=== PATIENT | female | born 1955 | race Caucasian/White ===

== ENCOUNTER → 2019-08-02 08:42 | Outpatient (BNVA) | payer MEDICARE, OTHER, SELFPAY | PROVIDERS: Family Provider Nurse Practitioner Family; PCP Nurse Practitioner Family; Visit Provider Nurse Practitioner Family | DX: I10 Essential (primary) hypertension (principal); H91.90 Unspecified hearing loss, unspecified ear | CPT/HCPCS: 80048; 80061 ==

== ENCOUNTER 2019-08-05 22:58 | Emergency (ER) | payer MEDICARE, OTHER, SELFPAY ==
[2019-08-05 23:15] VITALS: BP 184/109; RESP 18; TEMP 36.7; O2SAT 95; BMI 25.6
--- NOTE | 2019-08-05 23:24 | XRR_ITS ---
PROCEDURE INFORMATION: Exam: XR Chest, 1 View Exam date and time: 08/05/2019 11:59 PM Age: 64 years old Clinical indication: Pain; Cough; Chest pressure; Additional info: Cough/congestion TECHNIQUE: Imaging protocol: XR of the chest Views: 1 view. COMPARISON: No relevant prior studies available. FINDINGS: Lungs: Unremarkable. No consolidation. Pleural space: Unremarkable. No pleural effusion. No pneumothorax. Heart/Mediastinum: Unremarkable. No cardiomegaly. Bones/joints: No acute abnormality. XR/XR chest 1V portable [id number] IMPRESSION: No acute findings.
[2019-08-05 23:40] LABS: Basophils % 0.2 %; Eosinophils # 0.1 10^3/uL (0.0-0.8); Eosinophils % 0.8 %; Hematocrit 40.6 % (37.0-47.0); Hemoglobin 13.2 g/dL (11.5-15.3); Lymphocytes # 2.2 10^3/uL (0.8-4.8); Lymphocytes % 32.6 %; Mean Corpuscular HGB Conc 32.5 g/dL (30.0-36.0); Mean Corpuscular Hemoglobin 27.9 pg (28.0-34.0); Mean Corpuscular Volume 85.8 fL (81-99); Mean Platelet Volume 11.9 fL (7.4-10.4); Monocytes # 0.4 10^3/uL (0.2-0.9); Monocytes % 5.5 %; Neutrophils % 60.7 %; Nucleated Red Blood Cells % 0 %; Platelet Count 218 10^3/cmm (130-400); Red Blood Count 4.73 10^6/uL (4.1-5.3); Red Cell Distribution Width 12.9 % (12.1-15.1); White Blood Count 6.6 10^3/uL (4.0-10.0)
[2019-08-05 23:52] VITALS: RESP 12; O2SAT 97
--- NOTE | 2019-08-05 23:53 | ED_ITS ---
Entered by Daija Arriaga, acting as scribe for Demetrio Donis DO Aug 05, 2019 22:58 HPI - Chest Pain General: Chief Complaint: Chest Pain Stated Complaint: high bp Time Seen by Provider: 08/05/19 23:53 Source: patient Mode of arrival: ambulatory Limitations: no limitations History of Present Illness: HPI narrative: 64 yo f came to the er for high blood pressure. Onset was today. Pt states that her bp was high and that she was having some chest pain with some tightness. Pt states that she was nauseated earlier today. Pt that she used to have to take medication for bp and it got better so she was taken off till here recently it started to go back up. MD complaint: chest pain Pertinent past history: other (hypertension) Onset (ago): day(s) (today) Timing of current episode: episodic Prior episodes: Yes Onset: during rest Pain location: epigastric Pain radiation: none Severity: mild Quality: tightness Relieving factors: nothing Exacerbating factors: nothing Associated symptoms: Reports nausea (gone now); Deny abdominal pain, dyspnea, fever(s), palpitations or vomiting Review of Systems 2 Const: Denies: fever Eyes: Denies: change in vision or blurry vision ENMT: Denies: painful swallowing, swelling of lips/tongue, bleeding gums, dental pain, Change in hearing, nose bleeds, post nasal drip or facial/sinus pain Card: Denies: palpitations Resp: Denies: shortness of breath GI: Reports: nausea (gone now); Denies: abdominal pain or vomiting : Denies: painful urination, urinary frequency, urinary urgency or blood in urine Musc: Denies: neck pain, back pain, redness or joint warmth Skin/Breast: Denies: rash, itching or redness Neuro: Denies: headache, dizziness, vertigo, confusion or seizure-like activity Psych: Denies: anxiety, visual hallucinations or auditory hallucinations PFSH ED PFSH: Statuses (acute, chronic, etc) shown below reflect problem list status as previously entered and may not be historically accurate Medical History (Updated 08/06/19 @ 03:06 by Demetrio Donis DO) HTN (hypertension), benign (Acute) Social History Smoking and tobacco status: never smoked Physical Exam Const: GENERAL APPEARANCE: well developed ORIENTATION/CONSCIOUSNESS: Yes oriented to person, Yes oriented to place and Yes oriented to time HENMT: COMMON NORMALS: normocephalic, external ears normal and external nose normal HEAD & SCALP: normocephalic; no scalp tenderness FACE & SINUS: normal facial exam NOSE: external nose normal and no nasal discharge EXTERNAL EAR: Yes external ears normal MOUTH: tongue normal Eye: COMMON NORMALS: PERRL, EOMs intact bilaterally and conjunctivae normal EYELID: eyelids normal CONJUNCTIVA: Yes conjunctivae normal PUPIL: Yes PERRL Neck/C-Spine: COMMON NORMALS: full ROM GENERAL: No tracheal deviation CERVICAL SPINE: Yes normal cervical lordosis Chest: COMMONS NORMALS: inspection of chest normal CHEST: No tenderness Resp: COMMON NORMALS: clear to auscultation bilaterally EFFORT & INSPECTION: No tachypneic, No respiratory distress, No retractions, No uses accessory muscles and No tracheal deviation AUSCULTATION: clear to auscultation bilaterally, no rhonchi, no wheezes and lung sounds not diminished Cardio: COMMON NORMALS: regular rate and regular rhythm RATE: regular rate RHYTHM: regular rhythm HEART SOUNDS: no murmurs PERIPHERAL PULSES: radial pulses present GI: INSPECTION: No abdominal distension AUSCULTATION: No hyperactive bowel sounds and No hypoactive bowel sounds PALPATION: No guarding and No rigid PERCUSSION: no dullness to percussion and no tympanic to percussion : COMMON NORMALS: Yes no CVA tenderness BLADDER/KIDNEY EXAM: Yes no CVA tenderness Back/Pelvis: COMMON NORMALS: no CVA tenderness Neuro: SENSORIUM/ORIENTATION: Yes oriented to person, Yes oriented to place and Yes oriented to time Psych: COMMON NORMALS: mental status grossly normal Skin: COMMON NORMALS: no rashes or lesions noted GENERAL SKIN EXAM: no rashes or lesions noted Course ED course: 64-year-old female with recent diagnosis of hypertension, no prior coronary history. She presents with increasing blood pressure this evening with tightness in her chest. The tightness in her chest is nearly resolved. Her hypertension is improving from her numbers at home. She responded nicely to amlodipine here. Her troponins were essentially unchanged at 2 hours. She did not show any ST changes on EKG. Her chest x-ray is negative. She will be allowed home. She will increase her lisinopril from 5 mg daily to 10. Vital Signs: Vital signs: Vital Signs Temperature 98.0 F 08/05/19 23:15 Pulse Rate 80 08/06/19 03:21 Respiratory Rate 19 H 08/06/19 03:21 Blood Pressure 134/78 08/06/19 03:21 Pulse Oximetry 97 08/06/19 03:21 MDM - Chest Pain Lab Data: Labs: Lab Results 08/05/19 08/05/19 08/05/19 Range/Units 23:35 23:35 23:35 WBC 6.6 (4.0-10.0) 10^3/ uL RBC 4.73 (4.1-5.3) 10^6/u L Hgb 13.2 (11.5-15.3) g/dL Hct 40.6 (37.0-47.0) % MCV 85.8 (81-99) fL MCH 27.9 L (28.0-34.0) pg MCHC 32.5 (30.0-36.0) g/dL RDW 12.9 (12.1-15.1) % Plt Count 218 (130-400) 10^3/c mm MPV 11.9 H (7.4-10.4) fL Neut % (Auto) 60.7 % Lymph % (Auto) 32.6 % Coos % (Auto) 5.5 % Eos % (Auto) 0.8 % Baso % (Auto) 0.2 % Neut # (Auto) 4.0 (1.8-7.7) 10^3/u L Lymph # (Auto) 2.2 (0.8-4.8) 10^3/u L Coos # (Auto) 0.4 (0.2-0.9) 10^3/u L Eos # (Auto) 0.1 (0.0-0.8) 10^3/u L Baso # (Auto) 0.0 (0.0-0.1) 10^3/u L Nucleated RBC % (a uto) 0 % Nucleated RBCs # 0.0 /100WBC Sodium 140 (136-145) mmol/L Potassium 4.1 (3.5-5.1) mmol/L Chloride 100 (98-107) mmol/L Carbon Dioxide 25 (22-29) mmol/L Anion Gap 19.1 H (5-19) BUN 15 (8-23) mg/dL Creatinine 0.8 (0.5-0.9) mg/dL GFR Calculation 71.8 L (90-130) mL/min Glucose 114 H (74-106) mg/dL Calcium 10.2 (8.5-10.5) mg/dL Total Bilirubin 0.4 (0.15-1.2) mg/dL AST 16 (0-32) U/L ALT 13 (0-33) U/L Alkaline Phosphata se 69 (35-105) IU/L Troponin T Baselin e 8 (0-10) ng/mL Troponin T 120 Min [place] (0-10) ng/mL Delta Troponin T (0-10) ABS# Total Protein 8.0 (6.6-8.7) g/dL Albumin 4.9 (3.5-5.2) g/dL Globulin 3.1 (1.3-4.6) g/dL 08/06/19 Range/Units 01:12 WBC (4.0-10.0) 10^3/ uL RBC (4.1-5.3) 10^6/u L Hgb (11.5-15.3) g/dL Hct (37.0-47.0) % MCV (81-99) fL MCH (28.0-34.0) pg MCHC (30.0-36.0) g/dL RDW (12.1-15.1) % Plt Count (130-400) 10^3/c mm MPV (7.4-10.4) fL Neut % (Auto) % Lymph % (Auto) % Coos % (Auto) % Eos % (Auto) % Baso % (Auto) % Neut # (Auto) (1.8-7.7) 10^3/u L Lymph # (Auto) (0.8-4.8) 10^3/u L Coos # (Auto) (0.2-0.9) 10^3/u L Eos # (Auto) (0.0-0.8) 10^3/u L Baso # (Auto) (0.0-0.1) 10^3/u L Nucleated RBC % (a uto) % Nucleated RBCs # /100WBC Sodium (136-145) mmol/L Potassium (3.5-5.1) mmol/L Chloride (98-107) mmol/L Carbon Dioxide (22-29) mmol/L Anion Gap (5-19) BUN (8-23) mg/dL Creatinine (0.5-0.9) mg/dL GFR Calculation (90-130) mL/min Glucose (74-106) mg/dL Calcium (8.5-10.5) mg/dL Total Bilirubin (0.15-1.2) mg/dL AST (0-32) U/L ALT (0-33) U/L Alkaline Phosphata se (35-105) IU/L Troponin T Baselin e (0-10) ng/mL Troponin T 120 Min [place] 7.47 (0-10) ng/mL Delta Troponin T -0.53 L (0-10) ABS# Total Protein (6.6-8.7) g/dL Albumin (3.5-5.2) g/dL Globulin (1.3-4.6) g/dL Imaging Data^: CXR: Radiologist's impression: [place] [address] XRay Report Signed Patient: Marnie Moss #: [id number] : 3Acct#:[id number] Age/Sex: 64 / FADM Date: 08/05/19 Loc: [facility] Clinic/Bed: Attending Dr: Ordering Provider/Ordering MD: Katelyn Morrison Date of Service: 08/05/19 Procedure(s): XR chest 1V portable [id number] Accession Number(s): [id number] Report Number: [id number] PROCEDURE INFORMATION: Exam: XR Chest, 1 View Exam date and time: 08/05/2019 11:59 PM Age: 64 years old Clinical indication: Pain; Cough; Chest pressure; Additional info: Cough/congestion TECHNIQUE: Imaging protocol: XR of the chest Views: 1 view. COMPARISON: No relevant prior studies available. FINDINGS: Lungs: Unremarkable. No consolidation. Pleural space: Unremarkable. No pleural effusion. No pneumothorax. Heart/Mediastinum: Unremarkable. No cardiomegaly. Bones/joints: No acute abnormality. XR/XR chest 1V portable [id number] IMPRESSION: No acute findings. Dictated By:Monik Watson Signed By:Gilson Watson Date/Time:08/06/19 0005 DD/ 0004 Discharge Plan Discharge Patient Disposition: Home, Self-Care Clinical Impression: Chest pain Qualifiers: Chest pain type: unspecified Qualified Code(s): R07.9 - Chest pain, unspecified Hypertension Qualifiers: Hypertension type: essential hypertension Qualified Code(s): I10 - Essential (primary) hypertension Condition: Stable Prescriptions: No Action lisinopril 5 mg tablet 5 mg PO QDAY Qty: 30 RF: 0 Discharge Orders: Discharge Order (Routine); Ordered 08/06/19 Ordered By: Demetrio Donis Referrals: Lidia Carlton FNP [Primary Care Provider] - Satya Feng FNP [Family Provider] - Discharge Diet: Advance as tolerated Discharge Activity: Resume usual activity Patient Instructions: Chest Pain (ED), Hypertension (ED) Activity Restrictions/Additional Instructions: Check your blood pressure twice daily. Report numbers to your physician. Return to the emergency department for worsening chest pain, shortness of breath, other concerning symptoms. Increase your lisinopril to 10 mg (2 5mg tablets) daily. Discharge Date/Time: 08/06/19 03:22 Coding Level of Care Code ED Supply Assistant for Vedag Lukas The documentation recorded by the Bart giron Stephanie Lyn, accurately reflects the service I personally performed and the decisions made by Gagandeep pandey Jeremy John, DO Aug 05, 2019 22:58
[2019-08-05 23:55] VITALS: RESP 21; O2SAT 97
[2019-08-06] VITALS (28 sets, daily range): BP systolic 134–152; BP diastolic 78–87; PULSE 72–80; RESP 11–20; O2SAT 96–98
[2019-08-06 00:01] LABS: Troponin(5th) Baseline 8 ng/mL (0-10)
[2019-08-06 00:18] LABS: Alanine Aminotransferase 13 U/L (0-33); Albumin Level 4.9 g/dL (3.5-5.2); Alkaline Phosphatase 69 IU/L (35-105); Anion Gap 19.1 (5-19); Aspartate Amino Transferase 16 U/L (0-32); Blood Urea Nitrogen 15 mg/dL (8-23); Calcium 10.2 mg/dL (8.5-10.5); Carbon Dioxide 25 mmol/L (22-29); Chloride 100 mmol/L (98-107); Globulin 3.1 g/dL (1.3-4.6); Glomerular Filtration Rate 71.8 mL/min (90-130); Glucose 114 mg/dL (74-106); Potassium 4.1 mmol/L (3.5-5.1); Sodium 140 mmol/L (136-145); Total Bilirubin 0.4 mg/dL (0.15-1.2)
[2019-08-06] MEDS: amlodipine 10 mg Tablet PO (01:09)
[2019-08-06 01:37] LABS: Troponin 5 2HR 7.47 ng/mL (0-10)
[2019-08-06 01:53] LABS: Troponin 5 2HR Delta -0.53 ABS# (0-10)
--- NOTE | 2019-08-06 05:24 | ECG_ITS ---
Measurements Intervals [place] Rate: 66 P: 54 LA: 198 QRS: -13 QRSD: 89 T: 28 QT: 382 QTc: 402 SINUS RHYTHM No previous ECG available for comparison Electronically Signed On 08-06-2019 18:02:51 PROCESS INSPECTOR by Zara Barth M.D. [email or web address]
== END 2019-08-06 03:22 | disposition home or self-care (01) ==
PROVIDERS: Physician Assistant; Emergency Provider Emergency Medicine; Family Provider Nurse Practitioner Family; PCP Nurse Practitioner Family
DX: R07.9 Chest pain, unspecified (principal); I10 Essential (primary) hypertension
CPT/HCPCS: 36415; 71045; 80053; 84484; 85025; 93005; 99283

== ENCOUNTER → 2020-05-16 10:29 | Outpatient (BNVA) | payer MEDICARE, OTHER, SELFPAY | PROVIDERS: Family Provider Nurse Practitioner Family; PCP Nurse Practitioner Family; Visit Provider Nurse Practitioner Family | DX: I10 Essential (primary) hypertension (principal) | CPT/HCPCS: 80048 ==

== ENCOUNTER → 2020-11-27 09:15 | Outpatient (BNVA) | payer MEDICARE, OTHER, SELFPAY | PROVIDERS: Family Provider Nurse Practitioner Family; PCP Nurse Practitioner Family; Visit Provider Nurse Practitioner Family | DX: I10 Essential (primary) hypertension (principal) | CPT/HCPCS: 80048 ==

== ENCOUNTER → 2021-06-27 08:46 | Outpatient (BNVA) | payer MEDICARE, OTHER, SELFPAY | PROVIDERS: Family Provider Nurse Practitioner Family; PCP Nurse Practitioner Family; Visit Provider Nurse Practitioner Family | DX: I10 Essential (primary) hypertension (principal) | CPT/HCPCS: 80053; 80061 ==

== ENCOUNTER 2025-05-15 19:21 | Emergency (ER) | payer MEDICARE, OTHER, SELFPAY ==
[2025-05-15 19:27] VITALS: BP 173/95; PULSE 91; RESP 16; TEMP 36.9; O2SAT 96; BMI 27.3
--- NOTE | 2025-05-15 19:29 | ECG_ITS ---
[facility] Test Date: 2025-05-15 Pat Name: Kathrine Moss Department: Room: Gender: Female Plumber'S Assistant: : 1955 Requested By: Poornima William Order Number: [id number] Joann MD: Zuri Guallpa M.D. Measurements Intervals [place] Rate: 93 P: 24 AR: 181 QRS: -21 QRSD: 89 T: 50 QT: 359 QTc: 448 Interpretive Statements SINUS RHYTHM POSSIBLE LEFT ATRIAL ENLARGEMENT [-0.1mV P-WAVE IN V1/V2] POSSIBLE LEFT VENTRICULAR HYPERTROPHY [VOLTAGE CRITERIA PLUS LAE OR QRS WIDENING] POSSIBLE ANTERIOR MYOCARDIAL INFARCTION , PROBABLY OLD [30 ms Q WAVE IN V3/V4, OR R < 0.2 mV IN V4] Compared to ECG 08/06/2019 01:24:31 Myocardial infarct finding now present Electronically Signed On 05-16-2025 22:04:45 TRAINING AND DEVELOPMENT HEAD by Zuri Guallpa M.D. [email or web address]
--- OUTSIDE RECORDS SUMMARY | 2025-05-15 19:32 | XMS_ITS | Encounter Summary ---
Author Organization [facility] Address [address] [place] [address] Care Team Providers Care Financial Services Manager Name Role Phone Unavailable Primary Care Provider Unavailabl e Encounter Details Date Type Department Care Team (Latest Contact Info) Description 09/19/1998 Outpatient Historical [facility] Medicine [place] [address] [facility] [address] [place] [id number] Hannah Palma NO ADDRESS ON FILE Pure hypercholesterolem (Primary Dx); Other and unspecified hyperlipidemia; Acute sinusitis, unspecified Social History Tobacco Use Types Packs/Day Years Used Date Smoking Tobacco: Never Assessed Comments Unknown Sex and Gender Information Value Date Recorded Sex Assigned at Not on file 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
--- OUTSIDE RECORDS SUMMARY | 2025-05-15 19:32 | XMS_ITS | Clinical Summary ---
Author Organization [facility] Address [address] 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
--- OUTSIDE RECORDS SUMMARY | 2025-05-15 19:32 | XMS_ITS | Encounter Summary ---
Author Organization [facility] Address [address] [place] [address] Care Team Providers Care Dampener Operator Name Role Phone Unavailable Primary Care Provider Unavailabl e Encounter Details Date Type Department Care Team (Latest Contact Info) Description 09/06/1998 Outpatient Historical [facility] Medicine [place] [address] [facility] [address] [place] [id number] Hannah Palma NO ADDRESS ON FILE Chronic ischemic heart disease, unspecified (Primary Dx); Other benign neoplasm of connective and other soft tissue of unspecified site; Screening for malignant neoplasm of the rectum; Screening for malignant neoplasm of the cervix Social History Tobacco Use Types Packs/Day Years Used Date Smoking Tobacco: Never Assessed Comments Unknown Sex and Gender Information Value Date Recorded Sex Assigned at Not on file 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
--- NOTE | 2025-05-15 20:20 | XRR_ITS ---
PROCEDURE INFORMATION: Exam: XR Chest Exam date and time: 05/15/2025 8:33 PM Age: 70 years old Clinical indication: Pain; Chest pressure; Additional info: Chest pain TECHNIQUE: Imaging protocol: Radiologic exam of the chest. Views: 1 view. COMPARISON: CR XR chest 1V portable [id number] 08/05/2019 11:49 PM FINDINGS: Lungs: Slightly diminished lung volumes with bronchovascular crowding. Linear opacities are noted at each lung base. Pleural spaces: No pleural effusion. No pneumothorax. Heart/Mediastinum: Cardiac silhouette is normal in size for technique. Bones/joints: Age appropriate. XR/XR chest 1V portable [id number] IMPRESSION: Minor linear opacities at each lung base could reflect developing atelectasis or pneumonitis. Lung volumes are low. No airspace consolidation.
--- NOTE | 2025-05-15 20:47 | W.ED.CHESTPA ---
HPI - Chest Pain General: Chief Complaint: Chest Pain Stated Complaint: Chest Pains Time Seen by Provider: 05/15/25 20:42 History of Present Illness: 70yo F w/pmhx of HTN, noncompliant with her medications, presents with a chief complaint of sudden onset, sharp and severe pain in her lower chest/upper abdomen with radiation to the back. Patient states she was at rest working on a puzzle when the pain came on. She states that pain has now gone away and she is completely asymptomatic but it has taken an hour or so to return back to baseline. She has not been ill with a fever, upper respiratory symptoms, cough, hemoptysis, syncope and she does not feel short of breath. Patient states she felt a little nauseated but no vomiting, diarrhea. She states she's noted a bit of dysuria this morning but no blood in urine. She does not have a h/o kidney stones. Patient has never been a smoker. Of note, she denies any neurologic sx such as confusion, vision change, focal numbness, weakness, paresthesia, difficulty w/speech, swallowing, facial asymmetry, difficulty w/coordination/ambulation. Related Data Previous Rx's ?Medication ?Instructions ?Recorded lisinopril 10 mg tablet See Rx Instructions .Route 06/27/21 .COMPLEX #90 tabs lisinopril 20 1 tab PO DAILY 30 days #30 tabs 05/16/25 mg-hydrochlorothiazide 12.5 mg tablet Allergies Allergy/AdvReac Type Severity Reaction Status Date / Time codeine Allergy nausea Verified 05/15/25 19:42 [facility]: Medical History (Updated 05/16/25 @ 00:06 by Yvrose Buckley MD) Chest pain HTN (hypertension), benign Surgical History History of colon surgery Hx of appendectomy Hx of hysterectomy Hx of removal of ovary Family History Father Chronic kidney disease (CKD) Mother Chronic kidney disease (CKD) Hypertension Social History Smoking and tobacco/nicotine status: never used tobacco/nicotine Physical Exam Narrative: EXAM NARRATIVE: Vital signs were reviewed. Patient is alert and oriented. EOMI, PERRL, no facial asymmetry, speech is clear. Patient is breathing comfortably, no increased WOB or accessory muscle use. SpO2 is above 95% on RA. Patient has clear lungs b/l, no rhonchi, wheezing or crackles. No hypotension or tachycardia. +Hypertension. Difference in SBP is not greater than 20 points. Abdomen is soft, nondistended and nontender. Patient is moving all extremities with full strength, no deformity or gross injury. No lower extremity edema or asymmetry. +2 radial and DP pulses. Course Vital Signs: Vital signs: Vital Signs Temperature 98.4 F 05/15/25 19:27 Pulse Rate 83 05/16/25 00:17 Respiratory Rate 16 05/16/25 00:17 Blood Pressure 136/91 05/16/25 00:17 Pulse Oximetry 95 05/16/25 00:17 Oxygen Delivery Me thod Room Air 05/15/25 23:54 MDM - Chest Pain Medical Decision Making 70-year-old female presents with a chief complaint of sudden, sharp and severe low chest/upper abd pain w/radiation to her back. Pain started at rest while patient was working on a puzzle. It lasted under 1 hour and on my exam, patient denies any type of pain. Differential diagnosis includes, but is not limited to, ACS, aortic dissection, AAA, pneumothorax, PE, pneumonia, upper respiratory infection, GERD, intra-abdominal pathology, other. On exam, patient is hemodynamically stable though she is very hypertensive. Systolic blood pressure in bilateral upper extremities does not differ by more than 20 points. It is 223 systolic in the right upper extremity and 217 systolic in the left upper extremity when I measure her blood pressure on my exam. She was evaluated CBC, BMP, troponin, BNP, EKG, chest x-ray, CT scan dissection protocol. Given her sudden onset of severe pain, history of uncontrolled hypertension, dissection remains on my Ddx. Shew as treated w/IV labetalol and PO lisinopril to lower her blood pressure. Patient has normal white blood cell count and is not anemic. She has a troponin that is negative x [address] imaging shows: IMPRESSION: 1. No acute abnormality of the normal caliber thoracoabdominal aorta. In particular, there is no evidence of acute dissection. 2. Small sliding hiatal hernia, otherwise no abnormality identified to explain patient's chest pain. 3. Right intrarenal calculus. No evidence of renal obstruction. 4. Diverticulosis without evidence of acute diverticulitis. Her symptoms may have been caused by small sliding hiatal hernia. Patient has not had recurrence of chest pain during her ED visit. Her blood pressure has improved. We discussed the importance of taking her blood pressure medication as prescribed. I will increase her dose of blood pressure medication given how hypertensive she presented. At this time, she is well-appearing and appropriate for outpatient management. Patient was counseled on supportive care at home, given return precautions and discharged in stable condition with recommendation for outpatient follow-up with primary care nurse or doctor. Lab Data 05/15/25 20:51 05/15/25 20:51 Radiology Impressions Chest X-Ray 05/15/25 20:20 IMPRESSION: Minor linear opacities at each lung base could reflect developing atelectasis or pneumonitis. Lung volumes are low. No airspace consolidation. Chest/Abdomen/Pelvis CTA 05/15/25 21:28 IMPRESSION: 1. No acute abnormality of the normal caliber thoracoabdominal aorta. In particular, there is no evidence of acute dissection. 2. Small sliding hiatal hernia, otherwise no abnormality identified to explain patient's chest pain. 3. Right intrarenal calculus. No evidence of renal obstruction. 4. Diverticulosis without evidence of acute diverticulitis. Laboratory Results WBC 8.63 10^3/uL (3.29-11.43) 05/15/25 20:51 RBC 4.62 10^6/uL (3.85-5.65) 05/15/25 20:51 Hgb 13.20 g/dL (11.27-16.99) 05/15/25 20:51 Hct 40.8 % (36-47) 05/15/25 20:51 MCV 88.3 fl (85-98) 05/15/25 20:51 MCH 28.6 pg (27-33) 05/15/25 20:51 MCHC 32.4 g/dL (30-55) 05/15/25 20:51 RDW 13.8 % (12.1-15.1) 05/15/25 20:51 Plt Count 193 10^3/cmm (157-399) 05/15/25 20:51 MPV 11.9 fL (7.4-10.4) H 05/15/25 20:51 Neut % (Auto) 66.0 % 05/15/25 20:51 Lymph % (Auto) 25.4 % 05/15/25 20:51 Cooper % (Auto) 7.0 % 05/15/25 20:51 Eos % (Auto) 1.2 % 05/15/25 20:51 Baso % (Auto) 0.2 % 05/15/25 20:51 Neut # (Auto) 5.70 10^3/uL (1.8-7.7) 05/15/25 20:51 Lymph # (Auto) 2.2 10^3/uL (0.8-4.8) 05/15/25 20:51 Cooper # (Auto) 0.6 10^3/uL (0.2-0.9) 05/15/25 20:51 Eos # (Auto) 0.1 10^3/uL (0.0-0.8) 05/15/25 20:51 Baso # (Auto) 0.0 10^3/uL (0.0-0.1) 05/15/25 20:51 Nucleated RBC % (auto) 0 % 05/15/25 20:51 Nucleated RBCs # 0.0 /100WBC 05/15/25 20:51 Sodium 142 mmol/L (136-145) 05/15/25 20:51 Potassium 3.9 mmol/L (3.5-5.1) 05/15/25 20:51 Chloride 106 mmol/L (98-107) 05/15/25 20:51 Carbon Dioxide 26 mmol/L (22-29) 05/15/25 20:51 Anion Gap 13.9 (5-19) 05/15/25 20:51 BUN 21 mg/dL (8-23) 05/15/25 20:51 Creatinine 0.7 mg/dL (0.5-0.9) 05/15/25 20:51 GFR Calculation Not Reportable 05/15/25 20:51 Glucose 117 mg/dL (65-115) H 05/15/25 20:51 Calculated Osmolality 298 mOsm/kg (285-295) H 05/15/25 20:51 Calcium 9.7 mg/dL (8.5-10.5) 05/15/25 20:51 Troponin T Baseline 8 ng/L (0-10) 05/15/25 20:51 Troponin T 120 Minute 7.79 ng/L (0-10) 05/15/25 22:51 Delta Troponin T -0.21 ABS# (0-10) L 05/15/25 22:51 NT-Pro-B Natriuret Pep 57 pg/mL (0-125) 05/15/25 20:51 All radiology interpretation(s) finalized by discharge EKG Data EKG 1: Interpretation: Sinus rhythm with a heart rate of 93, normal axis, normal intervals, narrow complex, no ST segment elevation. Discharge Plan Discharge Patient Disposition: Home Clinical Impression: Atypical chest pain, Sliding hiatal hernia High blood pressure Qualifiers: Hypertension type: unspecified Qualified Code(s): I10 - Essential (primary) hypertension Condition: Stable Prescriptions: New lisinopril-hydrochlorothiazide 20-12.5 mg tablet 1 tab PO DAILY 30 Days Qty: 30 0RF No Action lisinopril 10 mg tablet See Rx Instructions .ROUTE .COMPLEX Qty: 90 1RF Dose Instruction: Take 1 tablet by mouth once daily Rx Instructions: Take 1 tablet by mouth once daily Discharge Orders: Discharge ED (Routine); Ordered 05/16/25 Ordered By: Yvrose Buckley Referrals: Lidia Carlton FNP [Primary Care Provider, Family Practice] Patient Instructions: Chest Pain (ED), Chronic Hypertension (ED), Opioid Safety, Pain Management, Patient Portal & Judith Instructions Activity Restrictions/Additional Instructions: Please continue to monitor your condition closely at home. If your condition worsens or additional concerns arise, please return to the emergency department for reassessment. Please follow-up with your primary care physician closely within the next 48 hours. Please work with your doctor closely to ensure that your blood pressure is under control. Please see a barrel driller on an outpatient basis as soon as possible for follow up. Print Language: Austrian Coding Level of Care Code ED Metal Inspector for Chg Fwd Heart Score HEART Score Components History: Moderately Suspicious EKG: Non-specific Changes Age: 65 or more yrs Risk Factors: 1 or 2 Risk Factors (High blood pressure, age) Troponin: Baseline Trop <16 ng/L HEART Score RESULT HEART Score: 5
[2025-05-15 21:07] LABS: Hematocrit 40.8 % (36-47); Hemoglobin 13.20 g/dL (11.27-16.99); Mean Corpuscular HGB Conc 32.4 g/dL (30-55); Mean Corpuscular Hemoglobin 28.6 pg (27-33); Mean Corpuscular Volume 88.3 fl (85-98); Nucleated Red Blood Cells % 0 %; Platelet Count 193 10^3/cmm (157-399); Red Blood Count 4.62 10^6/uL (3.85-5.65); White Blood Count 8.63 10^3/uL (3.29-11.43)
[2025-05-15 21:26] LABS: Troponin(5th) Baseline 8 ng/L (0-10)
--- NOTE | 2025-05-15 21:28 | CTR_ITS ---
PROCEDURE INFORMATION: Exam: CTA Chest With Contrast CTA Abdomen and Pelvis Without And With Contrast Exam date and time: 05/15/2025 9:55 PM Age: 70 years old Clinical indication: Abdominal pain; Other: Sharp; Additional info: Sharp/tearing chest pain, R/O dissection TECHNIQUE: Imaging protocol: Computed tomographic angiography of the chest with contrast. Exam focused on the arteries. Computed tomographic angiography of the abdomen and pelvis without and with contrast. Exam focused on the arteries. 3D rendering (Not supervised by radiologist): MIP and/or 3D reconstructed images were created by the technologist. Radiation optimization: All CT scans at this facility use at least one of these dose optimization techniques: automated exposure control; mA and/or kV adjustment per patient size (includes targeted exams where dose is matched to clinical indication); or iterative reconstruction. Contrast material: [id number]; Contrast volume: 100 ml; Contrast route: INTRAVENOUS (IV); COMPARISON: CR (CHEST, ) 05/15/2025 8:33 PM RADIATION DOSE METRICS: Total DLP (mGy-cm): 1304.43 FINDINGS: VASCULATURE: Pulmonary arteries: Normal caliber pulmonary artery tree without visible filling defect. Aorta: Normal caliber thoracic aorta without evidence of acute dissection, penetrating ulcer, or intramural hematoma. Normal caliber abdominal aorta without evidence of dissection. Celiac and mesenteric arteries: No occlusion or significant stenosis. Renal arteries: No occlusion or significant stenosis. Right iliac arteries: No occlusion or significant stenosis. Left iliac arteries: No occlusion or significant stenosis. Thyroid: Homogeneous thyroid. CHEST: Lungs: No consolidation. No masses. Pleural spaces: No pneumothorax. No pleural effusion. Heart: No cardiomegaly. No pericardial effusion. Diaphragm: Mild calcific plaque. Small sliding hiatal hernia. ABDOMEN AND PELVIS: Liver: No mass. Gallbladder and biliary ducts: Contracted postprandial gallbladder. No gallbladder inflammatory change or biliary tree dilation. Pancreas: No edema or visible mass. Spleen: No splenomegaly. Adrenal glands: No mass. Kidneys and ureters: Right intrarenal stones. No evidence of renal obstruction, solid mass, or pyelonephritis. Stomach and bowel: Postprandial stomach. Normal caliber small bowel. Distal colonic diverticulosis without evidence of acute diverticulitis. Prior ileocolic resection with patent anastomosis. Patent sigmoid suture line. Appendix: Appendix is surgically absent. Intraperitoneal space: No free air. No significant fluid collection. Urinary bladder: No mass or calculus. Reproductive: Prior hysterectomy. No evidence of vaginal cuff or adnexal mass. Lymph nodes: No mediastinal, supraclavicular, or axillary adenopathy. No retroperitoneal or inguinal adenopathy. Bones/joints: No acute fracture. Soft tissues: No perineal/perianal abscess or inflammation. CT[facility] [id number] IMPRESSION: 1. No acute abnormality of the normal caliber thoracoabdominal aorta. In particular, there is no evidence of acute dissection. 2. Small sliding hiatal hernia, otherwise no abnormality identified to explain patient's chest pain. 3. Right intrarenal calculus. No evidence of renal obstruction. 4. Diverticulosis without evidence of acute diverticulitis.
[2025-05-15 21:33] LABS: Anion Gap 13.9 (5-19); Blood Urea Nitrogen 21 mg/dL (8-23); Calcium 9.7 mg/dL (8.5-10.5); Carbon Dioxide 26 mmol/L (22-29); Chloride 106 mmol/L (98-107); Creatinine Clr Calc Pharmacy 55.1793; Glucose 117 mg/dL (65-115); NT Pro B Type Natriuretic Pept 57 pg/mL (0-125); Osmolality Calculated 298 mOsm/kg (285-295); Potassium 3.9 mmol/L (3.5-5.1); Sodium 142 mmol/L (136-145)
[2025-05-15 21:48] VITALS: BP 184/97; PULSE 84; RESP 16; O2SAT 97
[2025-05-15] MEDS: iohexol 350 mg/mL 500 mL Btl (per mL) IV (22:00)
[2025-05-15] MEDS: labetalol 5 mg/mL SDV 20mL 20 MG IVP (22:23)
[2025-05-15 22:35] VITALS: BP 167/82; PULSE 78; RESP 16; O2SAT 97
[2025-05-15 23:25] LABS: Troponin 5 2HR 7.79 ng/L (0-10)
[2025-05-15 23:27] LABS: Troponin 5 2HR Delta -0.21 ABS# (0-10)
[2025-05-15 23:30] VITALS: BP 160/100; PULSE 77; RESP 16; O2SAT 95
[2025-05-15 23:54] VITALS: BP 161/100; PULSE 81; RESP 16; O2SAT 95
[2025-05-16 00:17] VITALS: BP 136/91; PULSE 83; RESP 16; O2SAT 95
--- NOTE | 2025-05-17 07:59 | DCPLANNER ---
Referal sent to Cardiology to schedule
== END 2025-05-16 00:25 | disposition home or self-care (01) ==
PROVIDERS: Emergency Provider Emergency Medicine; PCP Nurse Practitioner Family
DX: R07.89 Other chest pain (principal); K44.9 Diaphragmatic hernia without obstruction or gangrene; I10 Essential (primary) hypertension
CPT/HCPCS: 36415; 71045; 71275; 74174; 80048; 83880; 84484; 85025; 93005; 96374; 99285; J3490; J9999

== ENCOUNTER → 2025-06-20 13:03 | Outpatient (BNVA) | payer MEDICARE, OTHER, SELFPAY | PROVIDERS: PCP Nurse Practitioner Family; Referring Provider Emergency Medicine; Visit Provider Internal Medicine Cardiovascular Disease | DX: Z51.89 Encounter for other specified aftercare (principal); I10 Essential (primary) hypertension; R10.13 Epigastric pain | CPT/HCPCS: 99204 ==